=== PATIENT | male | born 1975 | race African-American/Black ===

== ENCOUNTER → 2017-03-14 | Outpatient (CLI) | payer OTHER ==
[~2017-03-14] MED LIST: PROHANCE 279.3MG/ML 15ML VIAL (A9576) As Ordered ONE
--- NOTE | 2017-03-14 18:55 | REP ---
MR IACS WITHOUT AND WITH CONTRAST: HISTORY: Right hearing loss. CONTRAST: ProHance 15 mL. Several punctate areas of increased signal intensity on T2 weighted images are present in the subcortical white matter. This represents small vessel ischemic disease. There is no intraparenchymal hemorrhage, infarct, mass, or midline shift. There is no abnormal enhancement. A small developmental venous anomaly is present in the left fontal lobe. The ventricular system is normal in appearance. There is no extracerebral collection. There is no cerebellopontine angle mass. The inner ear structures are normal in appearance. The mastoid air cells and sinuses are clear. IMPRESSION: There are several punctate areas of increased signal intensity in the subcortical white matter. This is a nonspecific finding. Signed by Favio Lugo MD 03/14/2017 07:11 P
== END ==
LOC: M RAD 16:27
PROVIDERS: ATTEND Specialist
DX: H91.21 Sudden idiopathic hearing loss, right ear (principal)
CPT/HCPCS: 70553; A9576

== ENCOUNTER 2018-07-11 15:13 | Emergency (ER) | payer OTHER ==
[~2018-07-11] VITALS: Ht 167.6 cm; Wt 75.0 kg
[2018-07-11] MEDS ORDERED: PRAZ5CAP PO (15:31)
[2018-07-11 15:32] LABS: BASO % 0.3 % (0.0-1.0); EOS # 0.2 10^3/uL (0.0-0.50); EOS % 2.8 % (0.0-3.0); HEMATOCRIT 41.7 % (42.0-52.0); HEMOGLOBIN 13.7 g/dl (13.5-17.5); LYMPH # 2.3 10^3/uL (1.5-4.5); LYMPH % 33.4 % (24.0-44.0); MEAN CORPUSCULAR HEMOGLOBIN 26.4 pg (27.0-33.0); MEAN CORPUSCULAR HGB CONC 32.9 g/dl (32.0-36.5); MEAN CORPUSCULAR VOLUME 80.5 fl (80.0-96.0); MONO # 0.5 10^3/uL (0.0-0.8); MONO % 7.9 % (0.0-5.0); NEUTROPHILS # 3.8 10^3/uL (1.8-7.7); NEUTROPHILS % 55.5 % (36.0-66.0); PLATELET COUNT, AUTOMATED 237 10^3/uL (150-450); RED BLOOD COUNT 5.18 10^6/uL (4.30-6.10); WHITE BLOOD COUNT 6.8 10^3/uL (4.0-10.0)
[2018-07-11] MEDS ORDERED: RANI150C PO (15:34)
[2018-07-11] MEDS ORDERED: NEUR300C PO (15:34)
[2018-07-11] MEDS ORDERED: ZOLM5TAB PO (15:34)
[2018-07-11] MEDS ORDERED: SERT50TA PO (15:34)
[2018-07-11] MEDS ORDERED: REFR0.5D8 OP (15:34)
[2018-07-11 16:07] LABS: BLOOD UREA NITROGEN 21 MG/DL (7-18); CALCIUM LEVEL 8.3 MG/DL (8.5-10.1); CARBON DIOXIDE LEVEL 27 MEQ/L (21-32); CHLORIDE LEVEL 102 MEQ/L (98-107); CPK CREATINE PHOSPHOKINASE 426 U/L (39-308); CREATININE FOR GFR 1.33 MG/DL (0.70-1.30); GLOMERULAR FILTRATION RATE > 60.0 (>60); GLUCOSE, FASTING 70 MG/DL (70-100); MB/CK RELATIVE INDEX 0.45 (< OR =4); POTASSIUM SERUM 4.2 MEQ/L (3.5-5.1); SODIUM LEVEL 137 MEQ/L (136-145); TROPONIN I < 0.02 NG/ML (< 0.10)
--- NOTE | 2018-07-11 16:30 | REP ---
PA and lateral chest: There are no comparisons. The lung choi are clear. The cardiac size is normal. The natalia, mediastinum, and skeletal structures are unremarkable. Impression: Negative PA and lateral chest. Electronically Signed by Wilberto Ramsey MD 07/11/2018 04:21 P
[2018-07-11 16:51] VITALS: BP 131/67
--- NOTE | 2018-07-12 20:55 | ECGEPIP ---
Stationary ECG Study [facility] - ED Test Date: 2018-07-11 Pat Name: DIANA CRAWFORD Department: Room: - Gender: M Food A[facility]: [facility] : 1975 Requested By: OSMEL WADE Order Number: [id number] Reading MD: Madison Soto Measurements Intervals [place] Rate: 73 P: 70 WI: 167 QRS: 73 QRSD: 82 T: 45 QT: 372 QTc: 411 Interpretive Statements SINUS RHYTHM NSTTW ABNORMALITY NO PRIOR FOR COMPARISON Electronically Signed On 07-12-2018 20:54:47 EDT by Madison Soto
== END 2018-07-11 16:58 | disposition home or self-care (01) ==
LOC: M ED 15:13 → EDBD 15:13 → M ED 16:58
DX: R07.89 Other chest pain (principal); R94.31 Abnormal electrocardiogram [ECG] [EKG]; K21.9 Gastro-esophageal reflux disease without esophagitis; Z79.899 Other long term (current) drug therapy